=== PATIENT | male | born 1995 | race Caucasian/White ===

== ENCOUNTER 2018-04-23 13:35 | Inpatient (IN) | payer OTHER ==
--- NOTE | 2018-04-23 14:21 | EDPHY ---
H & P Smoking Status: Light smoker Time Seen by Provider: 04/23/18 13:56 HPI/ROS: CHIEF COMPLAINT: Right ankle pain for 3 days HISTORY OF PRESENT ILLNESS: Patient had surgery on the right ankle 8 years ago. Occasionally gets sore but he has been lumbar active over the last week. He is taking care of a friend's young cat and that involves running up and down the stairs multiple times which is new for him. No scratches or bites. Over the last 3 days he has been much more sore in the foot. Pain is in the arch in the ankle but not in the leg knee or calf. Not associated with chest pain or shortness of breath. Worse with weight-bearing. REVIEW OF SYSTEMS: He has ingrown toenail on the right on the lateral side which is slightly open wound which is chronic and not new. No leg redness and no skin redness in the foot or ankle. PAST MEDICAL HISTORY: Right ankle surgery Family history: Negative for venous thromboembolism Social history: Here with his parents General Appearance: Alert and conversant, cooperative. Patient is a normal right knee, no calf tenderness compartments are soft in the lower leg. He has no malleolar tenderness but is tender in the instep as well as by the heel. Evans test is negative. No skin redness or lymphangitis. Normal dorsalis pedis pulse, normal motor and sensory in the foot. Old healed surgical incisions are clean dry and intact. He does have pain with range of motion of the ankle. Emergency Department course/MDM: Differential considered including but not limited to gout or arthritis, septic joint, DVT, cellulitis, hardware problem or fracture. Clinically unlikely to have cellulitis. Afebrile, Skin Is identical to the other foot and ankle. Plan for x-ray, CBC sed rate and CRP. Declined pain medication initially. 1455: Procedure: Arthrocentesis. After verbal informed consent was obtained explaining the risks including but not limited to infection and bleeding a arthrocentesis was performed on the right ankle joint. The patient was prepped and draped in the usual sterile fashion. The joint was anesthetized with 1 mL of 1% xylocaine without epinephrine. Approximately 2 mL of cloudy fluid was obtained. There were no complications. The procedure was performed by myself. Signed out to Dr. Etienne with disposition pending joint fluid analysis. Differential includes primarily gout, pseudogout, septic joint. (Homar Lara) Constitutional: Initial Vital Signs Temperature (C) 37.4 C 04/23/18 13:50 Heart Rate 76 04/23/18 13:50 Respiratory Rate 16 04/23/18 13:50 Blood Pressure 143/82 H 04/23/18 13:50 O2 Sat (%) 96 04/23/18 13:50 O2 Delivery Mode Room Air Allergies/Adverse Reactions: No Known Allergies Allergy (Verified 04/23/18 18:57) Home Medications: Medication Instructions Recorded NK [No Known Home Meds] 04/23/18 Medical Decision Making - Diagnostics Imaging: I viewed and interpreted images myself - Diagnostics Imaging Results: Imaging Impressions Ankle X-Ray 04/23/18 14:08 Impression: Nothing acute identified. These see above. Hardware identified but no other abnormalities. (Homar Lara) ED Course/Re-evaluation: I took over care of this patient at 3:00 p.m.. This patient presented to the emergency department with complaint of atraumatic right ankle pain. The right ankle joint was aspirated by Dr. Homar Lara. A cloudy synovial fluid obtained. We are awaiting analysis results at this time. 4:15 p.m., still awaiting results of synovial fluid analysis. There is a problem with the analyzer. 5:15 p.m., the patient was re-evaluated. We are still awaiting results on his synovial fluid analysis. There is a problem with the analyzer. They are doing a manual analysis at this time. I spoke with the patient at this time. As long as he is not moving his left ankle he does not have significant pain. He reports that he had surgery on the left ankle with hardware implanted about 8 years ago down in [place]. He denies any history of acute injury. He states that over the last 3 days the ankle has been increasing in pain, swelling and warmth. He reports that he is not able to put weight on it and any movement of the ankle joint itself at this time causes him significant pain. 5:30 p.m., preliminary results of sign oval fluid analysis. Greater than 75, 000 white cells reported to me by medical laboratory technician. Rare uric acid crystals, Gram stain significant for lots of white cells but no organisms seen. 6:00 p.m., patient re-evaluated, reports last solid food before 11:00 a.m.. He ank water on the way to the emergency department 5 hr ago. Results of synovial fluid analysis discussed with him and family. Need for washout/ operative management at admission discussed. All of their questions were answered. 6:30 p.m., spoke with on-call orthopedic surgeon Dr. Randy Troy. Case discussed with him in detail. He will plan on taking this patient to the OR at 9:00 p.m. tonight for washout of right ankle. We will start the patient on IV vancomycin in the emergency department. Synovial fluid and blood cultures have been ordered. 6:45 p.m., verified with lab that synovial fluid cultures are pending. Patient given 2 g of IV vancomycin. Patient admitted under the care of Dr. Randy Troy in stable condition. (Paco Etienne) - Data Points Laboratory Results: Laboratory Results 04/23/18 14:16 04/23/18 04/23/18 04/23/18 14:50 14:16 14:16 WBC 17.36 10^3/uL H 10^3/uL (3.80-9.50) RBC 5.67 10^6/uL 10^6/uL (4.40-6.38) Hgb 17.3 g/dL g/dL (13.7-17.5) Hct 51.3 % H % (40.0-51.0) MCV 90.5 fL fL (81.5-99.8) MCH 30.5 pg pg (27.9-34.1) MCHC 33.7 g/dL g/dL (32.4-36.7) RDW 12.6 % % (11.5-15.2) Plt Count 232 10^3/uL 10^3/uL (150-400) MPV 10.6 fL fL (8.7-11.7) Neut % (Auto) 73.8 % % (39.3-74.2) Lymph % (Auto) 16.2 % % (15.0-45.0) [place] % (Auto) 7.7 % % (4.5-13.0) Eos % (Auto) 0.6 % % (0.6-7.6) Baso % (Auto) 0.5 % % (0.3-1.7) Nucleat RBC Rel Count 0.0 % % (0.0-0.2) Absolute Neuts (auto) 12.80 10^3/uL H 10^3/uL (1.70-6.50) Absolute Lymphs (auto) 2.82 10^3/uL 10^3/uL (1.00-3.00) Absolute Monos (auto) 1.34 10^3/uL H 10^3/uL (0.30-0.80) Absolute Eos (auto) 0.10 10^3/uL 10^3/uL (0.03-0.40) Absolute Basos (auto) 0.09 10^3/uL 10^3/uL (0.02-0.10) Absolute Nucleated RBC 0.00 10^3/uL 10^3/uL (0-0.01) Immature Gran % 1.2 % H % (0.0-1.1) Immature Gran # 0.21 10^3/uL H 10^3/uL (0.00-0.10) ESR 3 MM/HR MM/HR (0-15) C-Reactive Protein 29.4 mg/L H mg/L (<10.0) Fl Pathologist Review Pending Synovial Source SYNOVIAL Synovial Color WHITE H (CLS/PALE YL) Synovial Appearance CLOUDY H (CLEAR) Synovial WBC 91728 /mm3 H /mm3 (0-150) Synovial RBC 19695 /mm3 H /mm3 (0-0) Synovial Neutrophils 96 % H % (0-25) Synov Monos/Macrophage 4 % % Synovial Crystals Pending Microbiology Results: MICROBIOLOGY 04/23/18 14:50 Ankle - Aspirate Gram Stain - Final Medications Given: Vancomycin HCl 2 gm/ Sodium (Chloride) 500 mls @ 250 mls/hr IV EDNOW ONE PRN Reason: Protocol Stop: 04/23/18 20:43 Last Admin: 04/23/18 19:46 Dose: 500 mls Departure - Departure Disposition: [facility] Acute Clinical Impression: Right ankle pain, Septic arthritis of right ankle
[2018-04-23 14:26] LABS: PLATELET COUNT 232 10^3/uL (150-400)
[2018-04-23] MEDS ORDERED: VANCOMYCIN 2 GM in NS 500 ML IV ONE (18:44)
[2018-04-23] MEDS ORDERED: BUPIVACAINE 0.5% 30 ML SDV ONE (18:59)
[2018-04-23] MEDS ORDERED: BUPIVACAINE/EPI 0.5% 30 ML SDV ONE (18:59)
[2018-04-23] MEDS ORDERED: POLYMYXIN B SULFATE 500,000 UNIT/10 ML SYR IRR ONE (18:59)
[2018-04-23] MEDS ORDERED: BACITRACIN 50,000 UNITS/10 ML SYR IRR ONE (20:34)
[2018-04-23] MEDS ORDERED: ceFAZolin 2 GM/DEXTROSE 100 ML IV ONE (20:38)
[2018-04-23] MEDS ORDERED: CEFAZOLIN 2 GM/DEXTROSE/100 ML BAG IV ONE (20:39)
[2018-04-23] MEDS ORDERED: MIDAZOLAM 2 MG/2 ML VIAL ONE (20:42)
--- NOTE | 2018-04-23 20:51 | PDANEPAE ---
ANE History of Present Illness infected ankle, here for I+D ANE Past Medical History - Cardiovascular History Hx Hypertension: No Hx Arrhythmias: No Hx Chest Pain: No Hx Coronary Artery / Peripheral Vascular Disease: No - Pulmonary History Hx COPD: No Hx Asthma/Reactive Airway Disease: No Hx Recent Upper Respiratory Infection: No Hx Oxygen in Use at Home: No - Endocrine History Hx Diabetes: No Obesity: moderate ANE Review of Systems Review of Systems: - Exercise capacity Exercise capacity: >=4 METS ANE Patient History - Allergies Allergies/Adverse Reactions: No Known Allergies Allergy (Verified 04/23/18 18:57) - Home Medications Home Medications: NK [No Known Home Meds] 04/23/18 [Last Taken Unknown] - NPO status NPO Status: no food or drink >8 hours NPO Since - Liquids (Date): 04/23/18 NPO Since - Liquids (Time): 13:00 NPO Since - Solids (Date): 04/23/18 NPO Since - Solids (Time): 10:00 - Anes Hx Anes Hx: no prior problems - Smoking Hx Smoking Status: Light smoker - Alcohol Use Alcohol Use: Occasionally - Family Anes Hx Family Anes Hx: none ANE Labs/Vital Signs - Labs Result Diagrams: 04/23/18 14:16 - Vital Signs Blood Pressure: 123/72 Heart Rate: 64 Respiratory Rate: 16 O2 Sat (%): 94 Height: 185.42 cm Weight: 129.274 kg ANE Physical Exam - Airway Neck exam: FROM Mallampati Score: Class 2 Mouth exam: normal dental/mouth exam - Pulmonary Pulmonary: no respiratory distress, clear to auscultation - Cardiovascular Cardiovascular: regular rate and rhythym, no murmur, rub, or gallop - ASA Status ASA Status: II ANE Anesthesia Plan Anesthesia Plan: GA w LMA
[2018-04-23] MEDS ORDERED: MIDAZOLAM 2 MG/2 ML VIAL IVP ONE (20:52)
[2018-04-23] MEDS ORDERED: LIDOCAINE 2% 100 MG/5 ML SYR ONE (20:55)
[2018-04-23] MEDS ORDERED: PROPOFOL 200 MG/20 ML VIAL ONE ×2 (20:55→21:17)
[2018-04-23] MEDS ORDERED: fentaNYL 100 MCG/2 ML INJ ONE ×3 (20:55→22:03)
--- NOTE | 2018-04-23 21:11 | GHP ---
DATE OF ADMISSION: 04/23/2018 CHIEF COMPLAINT: Right ankle pain. 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 He presents toda y with 3-day history of increasing redness, swelling, pain, and discomfort with weightbearing across his right ankle. He has a history significant for ORIF of a talus fracture by Dr. Jonas muir 8 years ago. He generally has aching across the ankle after a prolonged activity; however, th is was increasing pain that limited weightbearing. He denies any recent history of illness, trauma, or other focal injury. Does have an ingrown toenail to his right great toe. PAST MEDICAL HISTORY: As above. PAST SURGICAL HISTORY: As above. MEDICATIONS: None. ALLERGIES: None. SOCIAL HISTORY: Light smoker. Admits to 3-4 shots of alcohol a night and recently has been drinking more. REVIEW OF SYSTEMS: Negative for current chest pain, shortness of breath, belly pain, back pain, numb ness, tingling, or other joint-related complaints. PHYSICAL EXAMINATION: GENERAL: Objectively, this is a healthy gentleman who is pleasant, cooperativ e with examination. MUSCULOSKELETAL: Examination of right lower extremity reveals swelling about th e ankle. There are numerous pock mas to his right lower extremity in various stages of healing, co nsistent with scratching and/or picking. He has an ingrown toenail with slight erythema across the d istal great toe on the lateral border. There Is no gross purulence in this area. He is grossly tend er to light touch across the medial, lateral, and anterior aspect of his tibiotalar joint. Active ra nge of motion is 5 degrees of range of motion with dorsiflexion, plantar flexion. He has discomfort with passive flexion and extension across the ankle, 5/5 strength within his range of motion of plant ar flexion, dorsiflexion, again with give-way sensation. Sensation is intact to light touch. VITAL SIGNS: Demonstrate blood pressure 123/72, T max is 37.7, T current is 37.1. His heart rate is 64. LABORATORY DATA: White count is 17.3 with 73.8% neutrophils. ESR is 3. Initial aspiration demonstr ated sparse crystals, no organisms, and 4+ PMNs. IMPRESSION: Gout versus septic joint versus osteomyelitis, right talus, status post open reduction i nternal fixation. TREATMENT PLAN: I have reviewed his x-rays, which demonstrate extensive medial and lateral hardware placement for a previously comminuted talus fracture. This is in near anatomic position. There are several screws that are fractured within the body of the talus. There are secondary degenerative rhianna nges in the tibiotalar and subtalar joints. Given his laboratory values and clinical picture, I have recommended urgent irrigation and debridemen t of his tibiotalar and subtalar joint. I would not plan for hardware removal at this time. If cult ures returned positive for antibiotics, will discuss hardware removal and/or chronic suppression and possible repeat irrigation and debridement. If this returns with gout then he may resume activity on a more gentle timeline. /[id number]/MODL
[2018-04-23] MEDS ORDERED: TEMAZEPAM 15 MG CAP PO PRN (21:45)
[2018-04-23] MEDS ORDERED: PROMETHAZINE HCL 25 MG/ML INJ IVP PRN ×2 (21:45→21:49)
[2018-04-23] MEDS ORDERED: ONDANSETRON 4 MG/2 ML VIAL IVP PRN ×2 (21:45→21:49)
[2018-04-23] MEDS ORDERED: DIPHENOXYLATE/ATROPINE LOMOTIL 1 TAB PO PRN (21:45)
[2018-04-23] MEDS ORDERED: MAGNESIUM HYDROXIDE 30 ML UDCUP PO PRN (21:45)
[2018-04-23] MEDS ORDERED: oxyCODONE IR 5 MG TAB PO PRN ×2 (21:45→21:49)
[2018-04-23] MEDS ORDERED: LACTULOSE 20 GM/30 ML UDCUP PO PRN (21:45)
[2018-04-23] MEDS ORDERED: METOCLOPRAMIDE 10 MG/2 ML VIAL IVP PRN (21:45)
[2018-04-23] MEDS ORDERED: BISACODYL 10 MG SUPP PR PRN (21:45)
[2018-04-23] MEDS ORDERED: POLYETHYLENE GLYCOL 3350 17 GM PKT PO PRN (21:45)
[2018-04-23] MEDS ORDERED: ONDANSETRON DISINTEGRATING 4 MG TAB PO PRN (21:45)
[2018-04-23] MEDS ORDERED: diphenhydrAMINE 25 MG CAP PO PRN (21:45)
[2018-04-23] MEDS ORDERED: PROMETHAZINE HCL 25 MG SUPPR PR PRN (21:45)
--- NOTE | 2018-04-23 21:48 | POSTOPPROG ---
Post Op Note Date of Operation: 04/23/18 Surgeon: Randy Troy Health Care Law Specialist: none Anesthesiologist: rehana Anesthesia: GET(General Endotracheal) Pre-op Diagnosis: right septic ankle Post-op Diagnosis: same Indication: same Procedure: i and d right septic ankle Inf/Abcess present in the surg proc area at time of surgery?: Yes Depth: Deep Incisional (Fascial) EBL: Minimal Drains: Hemovac
[2018-04-23] MEDS ORDERED: fentaNYL 100 MCG/2 ML INJ IVP PRN (21:49)
[2018-04-23] MEDS ORDERED: NALOXONE HCL 0.4 MG/ML INJ IVP PRN (21:49)
[2018-04-23] MEDS ORDERED: ACETAMINOPHEN 500 MG TAB PO PRN (21:49)
[2018-04-23] MEDS ORDERED: HYDROCODONE/APAP 5/325 TAB PO PRN (21:49)
[2018-04-23] MEDS ORDERED: MEPERIDINE 25 MG/0.5 ML AMP IVP PRN (21:49)
[2018-04-23] MEDS ORDERED: DEXAMETHASONE 4 MG/ML VIAL IVP PRN (21:49)
--- NOTE | 2018-04-23 21:52 | POSTANESTH ---
Post Anesthetic Evaluation Cardiovascular Status: Normal, Stable, Similar to Pre-Op Cond Respiratory Status: Normal, Stable, Similar to Pre-op Cond. Level of Consciousness/Mental Status: Can Participate in Eval, Alert and Oriented Pain Control: Adequate, Prn Tx Ordered Nausea/Vomiting Control: Adequate, Prn Tx Ordered Complications Possibly Related to Anesthesia: None Noted
[2018-04-23] MEDS ORDERED: HYDROmorphONE/DILAUDID 2 MG/ML INJ ONE (22:22)
[2018-04-23] MEDS: HYDROmorphONE/DILAUDID 2 MG/ML INJ IVP PRN ×2 (22:23→22:34)
[2018-04-23] MEDS: FAMOTIDINE 20 MG TAB PO SCH (23:12)
[2018-04-23] MEDS: ACETAMINOPHEN 325 MG TAB PO SCH (23:12)
[2018-04-23] MEDS: LR 1,000 ML IV SCH (23:44)
[2018-04-24] MEDS: ceFAZolin 2 GM/DEXTROSE 100 ML IV SCH ×2 (05:02→13:18)
[2018-04-24] MEDS: ACETAMINOPHEN 325 MG TAB PO SCH (05:02)
[2018-04-24] MEDS: LR 1,000 ML IV SCH (08:12)
[2018-04-24] MEDS: FAMOTIDINE 20 MG TAB PO SCH (08:12)
--- NOTE | 2018-04-24 08:41 | SOAPPROG ---
SOAP Progress Note Assessment/Plan: Assessment: s/p i and d right ankle Plan:d/c home if cleared by ID i suspect that this is gout and not septic joint abx per ID, may d/c abx and dc home if stable tdwb f/u next week seek attn for increasing pain, redness, drainage, discharge or other focal complaint 04/24/18 08:39 Subjective: pain no cp or sob Objective: Vital Signs Temp Pulse Resp BP Pulse Ox 37.1 C 73 17 120/65 97 04/24/18 07:39 04/24/18 07:39 04/24/18 07:39 04/24/18 07:39 04/24/18 07:39 Microbiology 04/23/18 21:23 Gram Stain - Final Ankle - Aspirate 04/23/18 21:22 Gram Stain - Final Ankle - Swab 04/23/18 21:21 Gram Stain - Final Ankle - Swab 04/23/18 04/24/18 04/25/18 05:59 05:59 05:59 Intake Total 1900 885 Output Total 2.5 325 Balance 1897.5 560 drain d/c intact digital flex and ext toes warm and pink neg homans roby ICD10 Worksheet Patient Problems: Problems Problem Status Onset Right ankle pain Acute Septic arthritis of right ankle Acute
[2018-04-24] MEDS ORDERED: SENNOSIDES/DOCUSATE SODIUM TAB PO SCH (09:00)
--- NOTE | 2018-04-24 09:00 | GDS ---
ADMIT DIAGNOSIS: Right septic ankle. DISCHARGE DIAGNOSIS: Right septic ankle. PROCEDURE: Irrigation and debridement, right ankle, on IV antibiotics. HISTORY OF PRESENT ILLNESS: The patient is a 22-year-old gentleman who is 8 years' out from ORIF of a right talus fracture. He presented to the emergency department with a 72-hour history of increasin g redness, swelling, and pain. Aspirate demonstrated 4+ PMNs. Given the clinical suspicion for poss ible infection, he was set up for operative intervention with irrigation and debridement. HOSPITAL COURSE: The patient was admitted to the hospital floor after irrigation and debridement of his right ankle. During aspiration and washout, there was gross evidence for crystalline disease. A n infectious disease consult was obtained. At the time of discharge, he is tolerating an oral diet. Pain is well controlled on oral medicines. He is voiding without difficulty. He has been cleared b y Physical Therapy. He is touchdown weightbearing. Remain in the splint. Follow up in 1 week. See k attention for increasing redness, swelling, drainage, discharge, or other focal complaints. /[id number]/MODL
--- NOTE | 2018-04-24 09:00 | GOP ---
DATE OF OPERATION: SURGEON: Randy Troy MD TURNING LATHE TENDER: None. PREOPERATIVE DIAGNOSIS: Septic right ankle. POSTOPERATIVE DIAGNOSIS: Septic right ankle. PROCEDURE PERFORMED: Irrigation and debridement right tibiotalar and subtalar joints. FINDINGS: SPECIMENS: As above. INDICATIONS: The patient is a 22-year-old gentleman, who is 8 years out from ORIF of a talus fractur e. He presented to the emergency department with a 3-day history of increasing redness, swelling, an d pain across his right ankle, inability to ambulate. Aspirate demonstrated 4+ PMNs. Given the prov isional diagnosis of gout versus sepsis versus potential osteomyelitis, given the previous ORIF of a talus fracture, I have recommended operative intervention for irrigation and debridement of his tibio talar and subtalar joints. He understood the risks, benefits, and alternatives, and wished to procee d. Written consent was signed, and placed in the patient's chart. DESCRIPTION OF PROCEDURE: The patient was identified in the preanesthesia area, the right ankle juice rly demarcated as the operative site with an indelible marker. He was given 2 g of Ancef after the a spirate in the emergency department. In the OR, general endotracheal anesthesia was administered. A ttention was turned to the right ankle, which was sterilely prepped and draped in the usual fashion. A tourniquet was applied to the upper thigh. The limb was exsanguinated with gravity drainage only, and tourniquet inflated to 275 mmHg. The previous lateral incision was opened in entirety, carried sharply through the skin and subcutaneo us tissue, directly to bone. An extension was carried out to the plate and screws laterally across t he talus, and into the subtalar and tibiotalar joints. The subtalar joint demonstrated no fluid or d ebris. Upon entry into the tibiotalar joint, approximately 10 cc of grossly turbid fluid with gross crystals was encountered. This was sent for Gram stain, crystal culture, and analysis. The wound wa s copiously irrigated with pulsatile lavage solution, a 10-Uzbek drain placed in the tibiotalar join t. The wound was closed using 2-0 Monocryl and emmie. A sterile dressing and posterior splint in neutral orientation were applied. The patient was awakened, extubated, and taken to the recovery room in good, stable condition. TOTAL TOURNIQUET TIME: 28 minutes. COMPLICATIONS: None. DISPOSITION: To the recovery room, then to the floor. He will remain on IV antibiotics until full c ultures are obtained. Infectious Disease will consult on the patient. Ultimately, if this is gout, he may be discontinued from his antibiotics, and discharged home touchdown weightbearing. /[id number]/MODL
--- NOTE | 2018-04-24 09:03 | ASDISCHSUM ---
Discharge Information Plan Status:Home with No Needs Medically Cleared to Leave:04/23/2018 Discharge Date:04/23/2018 CM D/C Disposition:Home, Routine, Self-Care ADT D/C Disposition: Projected Discharge Date:04/23/2018 Transportation at D/C: Discharge Delay Reason: Follow-Up Date:04/23/2018 Discharge Slot: Final Diagnosis: Placement Information Patient Contact Information Contact Name:EDILIA Relationship: Address: Work Phone: City: [facility] Phone: [facility]/Zip Code: Email: Financial Information Financial Class:HMO and PPO Plans Primary Plan Desc:[facility] Primary Plan Number:[id number] Secondary Plan Desc: Secondary Plan Number: Assessment Information Intervention Information
--- NOTE | 2018-04-24 09:05 | ASMTDCNOTE ---
Case Management Discharge Discharge Order Complete? Answers: Yes Patient to Obtain Answers: via Family Medications Transportation Arranged Answers: Family/Friends Family Notified Answers: Yes Discharge Comments Notes: medically cleared for discharge to home. No needs identifed. Date Signed: 04/24/2018 09:04 AM Electronically Signed By:Bhargavi Peterson RN
--- NOTE | 2018-04-24 10:09 | GCON ---
INPATIENT INFECTIOUS DISEASE CONSULTATION REFERRING PHYSICIAN: Randy Troy MD REASON FOR REFERRAL: Right ankle inflammation, rule out infection. HISTORY OF PRESENT ILLNESS: Patient is a 22-year-old male who presented to [facility] Room on 04/23/2018 complaining of right ankle increasing swelling and pain. The patient noted indu t these symptoms have progressed along a 3-day history and have culminated in difficulty with weightb earing. He has a history for an open reduction/internal fixation of a talus fracture 8 years ago. Lainey hays does have hardware in that right ankle, although some of the hardware has failed and broken. That was evidenced on imaging. The patient was taken to the operating room late yesterday for a washout o f the joint area. Gram stain of the samples showed significant polymorphonuclear cells but no organi sms. Currently, the patient is resting comfortably and feels better on an antiinflammatory. Drain w as removed earlier this morning. The patient does state he has an uncle who had gout in his 20s. He also acknowledges increased alcohol consumption. PAST MEDICAL HISTORY: Essentially negative. PAST SURGICAL HISTORY: As above. ANTIBIOTICS: Cefazolin. ALLERGIES: No known drug allergies. SOCIAL HISTORY: Current tobacco user. 3-4 drinks of alcohol daily, increased as of late. No drug u se noted. REVIEW OF SYSTEMS: Other than that detailed above History of Present Illness, a comprehensive 10-sys tem review is negative. PHYSICAL EXAMINATION: VITAL SIGNS: Temperature maximum is 37.7, current is 37.1, heart rate 73, res piratory rate is 17, blood pressure is 120/65. GENERAL: The patient is an obese young male in no ac [place] distress. He is not toxic in appearance. He is alert and oriented x3. He is pleasant in demean or. HEENT: Normocephalic for age. Atraumatic. No scleral icterus. No oral lesion or drainage fro m the nares. HEART: Regular rate and rhythm. No significant peripheral edema. LUNGS: Clear to au scultation bilaterally with good effort. SKIN: Warm and dry to the touch. No rash or lesion noted. MUSCULOSKELETAL: No muscle belly tenderness is noted. Right ankle is postoperative. Drains remov ed. Mild pain with active and passive motion of the right ankle, but this is improved. LABORATORY DATA: Patient has a CBC dated 04/23/2018, shows a white blood cell count of 17.4, hemoglo bin of 17.3, hematocrit of 51.3, and a platelet count of 232. Differential is within normal limits. Serum chemistries on 04/23 show C-reactive protein of 29.4. Cell count from right ankle fluid on shows 68,627 white cells, 10,631 red cells, 96% of those white cells are neutrophils, rare sodium urate crystals seen by pathologist. MICROBIOLOGIC DATA: Patient has multiple joint fluid cultures taken on 04/23/2018. Gram stains are all significant for 4+ polymorphonuclear white cells but no organisms seen. Cultures are pending. ASSESSMENT: Probable right ankle acute gouty attack, given risk factor history. No evidence of infe ction at this point. Would be comfortable stopping the Ancef after the perioperative course and disc harging him home without antibiotic unless cultures end up growing later on in their incubation. Discussed case with Dr. Milo Troy. PLAN: 1. No antibiotics. 2. Cleared for discharge. /[id number]/MODL
[2018-04-24 11:25] VITALS: BP 120/63
--- NOTE | 2018-04-25 12:18 | PDMN ---
Medical Necessity Medical necessity: [facility] musculoskeletal disease: urgent I/D of poss septic joint vs. osteomyelitis vs gout. Pt with progressive pain redness, swelling, discomfort X 3 days PMHx ORIF talus fx 8 yrs ago. anticipate > 2 MN ongoing med nec care, further monitoring and tx of ankle.
== END 2018-04-24 13:44 | disposition home or self-care (01) | DRG 494 ==
LOC: F1N 22:45
PROVIDERS: ADMIT Orthopaedic Surgery; ATTEND Orthopaedic Surgery
PROC: 0S9F3ZX Drainage of Right Ankle Joint, Percutaneous Approach, Diagnostic (ICD-10-PCS; 2018-04-23)
PROC: 0S9F0ZZ Drainage of Right Ankle Joint, Open Approach (ICD-10-PCS; principal; 2018-04-24)
DX: M00.871 Arthritis due to other bacteria, right ankle and foot (principal); Z87.81 Personal history of (healed) traumatic fracture; F17.210 Nicotine dependence, cigarettes, uncomplicated
CPT/HCPCS: 96365; 97116-GP; 97161-GP; J0690; J1170; J2001; J2250; J2704; J3010; J3370